=== PATIENT | male | born 1990 | race Caucasian/White ===

== ENCOUNTER 2017-01-02 14:05 | Emergency (ER) | payer SELFPAY ==
[~2017-01-02] VITALS: Ht 172.7 cm; Wt 68.0 kg
[2017-01-02 14:08] VITALS: BP 122/69; PULSE 91; RESP 15; TEMP 98.5; O2SAT 100
[2017-01-02] MEDS ORDERED: IBUPROFEN 800 MG TAB PO ONE (15:15)
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
[2017-01-02] MEDS ORDERED: IBUP800T23 PO (16:11)
[2017-01-02] MEDS ORDERED: HYDR-3533 PO (16:23)
== END 2017-01-02 16:42 | disposition home or self-care (01) ==
LOC: NEPK 14:05
DX: S62.327A Displaced fracture of shaft of fifth metacarpal bone, left hand, initial encounter for closed fracture (principal); W23.0XXA Caught, crushed, jammed, or pinched between moving objects, initial encounter
CPT/HCPCS: 29125; 73130